=== PATIENT | female | born 1975 | race Hispanic/Latino ===

== ENCOUNTER 2017-01-18 06:32 | Day surgery (SDC) | payer OTHER ==
[~2017-01-18] VITALS: Ht 152.4 cm; Wt 72.7 kg
[~2017-01-18 06:32] MED LIST: ADDERALL XR 1010 MG PO; AMBIEN5 M1 PO; BENTYL10 MG PO; BUSPAR15 MG PO; CLONAZEPAM0.5 MG PO; EFFEXOR XR150 MG PO; ENDOCET 5-3251 EACH PO; GLYBURIDE1.25 MG PO; HYDROCODON-ACE1 EAC7 PO; IBUPROFEN800 MG PO; INDERAL10 MG PO; KLONOPIN; KLONOPIN0.5 M1 PO; MACROBID100 MG PO; Motrin PO; OCELLA TABLET1 EACH PO; PRAVACHOL10 MG PO; PROCARDIA20 MG PO; PROZAC20 MG PO; PROZAC40 MG PO; Percocet 5/325,Endoc PO; TORADOL10 MG PO; ULTRAM50 MG PO; VITAMIN D-32000 UNI2 PO; VITAMIN E1000 UNI1 PO; WOMEN'S DAILY1 EAC4 PO; ZOLOFT; Zantac,Taladine PO; zantac
[2017-01-18 08:46] VITALS: BP 121/83
[2017-01-18] MEDS ORDERED: NORCO 5/3251 TABLET PO (14:15)
[2017-01-18 17:39] VITALS: BP 122/79
== END 2017-01-18 18:26 | disposition home or self-care (01) ==
LOC: SDC 06:32 → NUC 07:30 → SDC 18:26
DX: C50.912 Malignant neoplasm of unspecified site of left female breast (principal); D05.02 Lobular carcinoma in situ of left breast; I10 Essential (primary) hypertension; E78.00 Pure hypercholesterolemia, unspecified; F41.8 Other specified anxiety disorders; E66.9 Obesity, unspecified; Z68.31 Body mass index [BMI] 31.0-31.9, adult; Z80.3 Family history of malignant neoplasm of breast
CPT/HCPCS: 78195; 78999; 93005; A9541; J0131; J0690; J1100; J1170; J1885; J2250; J2405; J2704; J3010